=== PATIENT | female | born 1960 | race Caucasian/White ===

== ENCOUNTER 2017-04-10 06:07 | Day surgery (SDC) | payer OTHER ==
[~2017-04-10] VITALS: Ht 152.4 cm; Wt 76.6 kg
[2017-04-10] MEDS ORDERED: METFORMIN (06:54)
[2017-04-10] MEDS ORDERED: SIMVASTATIN (06:54)
[2017-04-10] MEDS ORDERED: PROPOFOL 60 ML ONE (07:34)
[2017-04-10] MEDS ORDERED: LIDOCAINE 2% (SDV) 5 ML INJ ONE (07:34)
[2017-04-10 07:41] VITALS: BP 135/80; PULSE 58; RESP 14
[2017-04-10 08:11] VITALS: BP 113/70; PULSE 63; RESP 19
--- NOTE | 2017-04-10 08:29 | OPPN ---
Date/Time of Note Date/Time of Note DATE: 04/10/17 TIME: 08:28 Operative Report Preoperative Diagnosis Screening Postoperative Diagnosis Conscious colon polyp was removed Internal hemorrhoids Operation/Procedure Performed Colonoscopy and biopsy Surgeon see signature line outpatient physical therapist assistant None Anesthesia: MAC Estimated blood loss: none Transfusion Required none Specimen Colon polyp Grafts/Implants none Complications none ELDA MINOR MD Apr 10, 2017 08:29
[2017-04-10 08:40] VITALS: BP 127/70; RESP 18
--- NOTE | 2017-04-10 09:48 | GILP ---
DATE OF PROCEDURE: 04/10/2017 PROCEDURE PERFORMED: Colonoscopy and biopsy. SURGEON: Ruel Garvin MD PREOPERATIVE DIAGNOSIS: Screening colonoscopy. POSTOPERATIVE DIAGNOSES: 1. Colonoscopy all the way to the cecum. 2. Small transverse colon polyp was removed. 3. Internal hemorrhoids. INDICATION: Ms. Eva Acosta is a 56-year-old female patient who was scheduled for screening colonoscopy. The procedure and possible complications were well explained to the patient. She understood and consented to the procedure. DESCRIPTION OF PROCEDURE: Under the influence of anesthesia, the colonoscope was carefully introduced in the rectum. Under direct vision, it was advanced all the way to the cecum. FINDINGS: The patient had a small transverse colon polyp and it was removed using biopsy forceps. She was noted to have internal hemorrhoids. She tolerated the procedure very well, and there was no complication from the procedure. At the end of procedure, she was awake with stable vital signs and she was discharged home in care of her family. IMPRESSION: 1. Colonoscopy all the way to the cecum. 2. Small transverse colon polyp was removed using biopsy forceps. 3. Internal hemorrhoids. PLAN: 1. Await histopathology report. 2. Screening colonoscopy in 10 years. Dictated By: MD NASRA Sam/jamar/shahbaz /Document#: [id number]
== END 2017-04-10 09:21 | disposition home or self-care (01) ==
LOC: GIL 06:07
PROVIDERS: ATTEND Internal Medicine Gastroenterology
DX: Z12.11 Encounter for screening for malignant neoplasm of colon (principal); D12.3 Benign neoplasm of transverse colon; K64.8 Other hemorrhoids; E11.9 Type 2 diabetes mellitus without complications; E78.5 Hyperlipidemia, unspecified; I10 Essential (primary) hypertension; E66.9 Obesity, unspecified; Z68.33 Body mass index [BMI] 33.0-33.9, adult
CPT/HCPCS: 82962; 88305